=== PATIENT | male | born 1985 | race Caucasian/White ===

== ENCOUNTER 2021-07-26 23:43 | Inpatient (IN) | payer BC, SELFPAY ==
[2021-07-26 23:44] VITALS: BP 145/105; PULSE 106; RESP 18; TEMP 36.3; O2SAT 96; BMI 23.6
[2021-07-27] VITALS (10 sets, daily range): BP systolic 120–145; BP diastolic 76–94; PULSE 85–156; RESP 16–18; TEMP 36.6–37; O2SAT 95–99; BMI 22.4
[2021-07-27] MEDS: Phenobarbital 32.4 MG Tablet 97.2 MG PO (00:06)
[2021-07-27 00:31] LABS: Amphetamine Urine VISTA NEGATIVE (<1000 ng/mL); Barbiturate Urine VISTA NEGATIVE (< 200 ng/mL); Benzodiazepine Urine VISTA NEGATIVE (< 200 ng/mL); Cocaine Urine VISTA NEGATIVE (< 300 ng/mL); Ecstacy Urine VISTA NEGATIVE (< 500 ng/mL); Methadone Urine VISTA NEGATIVE (< 300 ng/mL); PCP Urine VISTA NEGATIVE (< 25 ng/mL); THC Urine VISTA NEGATIVE (< 50 ng/mL); Vista UDS pH Range 6
[2021-07-27 00:41] LABS: ALB/GLOB Ratio 0.9 RATIO (0.9-2.4); AST(SGOT) 27 U/L (15-37); Alanine Aminotransfer ALT/SGPT 29 U/L (16-61); Alkaline Phosphatase 101 U/L (45-117); Anion Gap 9 (5-15); BUN 10 mg/dL (7-18); BUN/Creat Ratio 9.2 RATIO (10-20); Calcium,Total 8.7 mg/dL (8.5-10.1); Chloride 101 mmol/L (98-107); Creatinine, Serum 1.09 mg/dL (0.70-1.30); EST Glomerular Filtration Rate 81 mL/min (>60); Est Glom Filt Rate - Afr Amer 98 mL/min (>60); Estimated Creatinine Clearance 89.77 ml/min; Globulin 4.6 g/dL (2.2-4.2); Glucose 113 mg/dL (74-106); Potassium 3.6 mmol/L (3.5-5.1); Protein, Total 8.6 g/dL (6.4-8.2); Sodium Level 138 mmol/L (136-145)
--- NOTE | 2021-07-27 00:43 | EX.ED.DYSGE1 ---
HPI History of Present Illness Chief Complaint: ETOH Intox Detail of Chief Complaint: Requesting detox from alcohol Informant: patient Onset/Context/Timing Onset: Weeks Context: Sudden Onset Timing: Continuous Quality: Patient presents because of alcohol dependency affecting job performance Location: Not applicable Current Severity: Severe Maximum Severity: Severe Worsened by: Patient began drinking proximately 2 weeks ago. Relieved by: Withdrawal symptoms relieved by alcohol ingestion Associated Symptoms Associated Symptoms: Palpitations, tremors not feeling well Narrative Narrative: Patient is a 36-year-old male who presents for alcohol detox. Last time he was in a detox program was 2013. He states he was sober since Father's Day. He began drinking this month. He is drinking 12-8 beers a day. Patient wakes up with shakes and tremors and palpitations. Patient denies fever, chills night sweats. He denies headache, visual, ocular auditory symptoms. He denies chest pain shortness of breath difficulty breathing. He denies vomiting or diarrhea. He denies black or maroon-colored stool. He denies hematuria. He denies bruising easily. He does vape. Prior similar symptoms: Yes Recent Illness/Hospitalization: No PFSH PFSH Medical History Alcohol abuse Home Medications NK 07/26/21 [History Last Taken Unknown] Allergy/AdvReac Type Severity Reaction Status Date / Time Penicillins AdvReac Rash Verified 07/26/21 23:47 Social History (Updated 07/27/21 @ 00:[address] Enmanuel Smith MD) household members: none Smoking Status: Former smoker Smokeless tobacco user: dissolvable tobacco alcohol intake: current Alcohol type: other details: 12-18 beers a day substance use type: does not use ROS ROS ED Constitutional Constitutional ED: Denies chills, fever(s), subjective, sweats or weight loss Eyes Eyes: Denies blurry vision, change in vision or diplopia ENT ENT ED: Denies ear pain, rhinorrhea or sore throat Cardiovascular Cardiovascular: Reports palpitations; Denies chest pain, orthopnea or racing heartbeat Respiratory/Chest Respiratory/Chest: Reports cough; Denies dyspnea, dyspnea on exertion, orthopnea or sputum Gastrointestinal Gastrointestinal: Denies abdominal pain, constipation, diarrhea, melena, nausea or vomiting Genitourinary Genitourinary ED: Denies dysuria, hematuria or urinary frequency Musculoskeletal Musculoskeletal: Denies arthralgias, back pain, myalgias or neck pain Integumentary Denies abscess, Abrasions or rash Neurologic Neurologic: Denies headache(s), paresthesias or weakness Psychiatric Psychiatric: Reports other Details: Alcoholism ; Denies anxiety or depression Endocrine Endocrinology: Denies polydipsia, polyphagia or polyuria Hematologic/Lymphatic Hematologic/Lymphatic: Denies anemia, easy bleeding or easy bruising Allergic/Immunologic Allergic/Immunologic ED: Denies mouth swelling, tongue swelling or urticaria EXAM Physical Exam Const Vital Signs: 07/26/21 23:44 07/27/21 00:08 Temperature 97.3 F L Temperature Source Temporal Pulse Rate 106 H 99 Respiratory Rate 18 18 Blood Pressure 145/105 H Blood Pressure Mean 118 Pulse Ox 96 99 Oxygen Delivery Method Room Air Room Air Positive well nourished and well developed General Appearance ED: well developed, NAD and other Alcohol odor to his health ; Negative for pallor HEENT Reports TM's clear and moist mucous membranes Negative for trauma or tenderness Tympanic Membrane ED: Yes TM's clear Eyes PERRL and EOMs intact bilaterally General Eye ED: Negative for pale conjunctiva or scleral icterus Neck no lymphadenopathy, supple and no JVD Resp normal respiratory effort and clear to auscultation bilaterally Effort and Inspection: Negative for pain with movement Cardio regular rhythm, S2 normal heart sound and no murmurs Rate: tachycardic GI normal to inspection, nondistended, normoactive bowel sounds, non-tender, non-distended and no masses Auscultation: normoactive bowel sounds Palpation: soft Back/Spine no CVA tenderness Cervical Spine: Negative for cervical spine tenderness Thoracic Spine / Upper Back: Negative for thoracic spinal tenderness or paraspinal muscle tenderness Neuro oriented x3, CN's II-XII intact bilaterally and no sensory deficits noted Neuro Narrative: Gait was normal. Sensorium / Orientation: alert Motor Exam: strength 5/5 throughout Psych mental status grossly normal Skin no rashes or lesions noted and no wounds General Skin Exam: Negative for jaundice or pallor MDM MDM MDM Narrative Medical decision making narrative: Screening blood work for admission for alcohol dependency was ordered. Will contact hospitalist for admission. Lab Data Attestation: I reviewed the patient's lab results. Labs: Laboratory Results - last 24 hr 07/26/21 07/27/21 07/27/21 23:58 00:05 00:05 Sodium 138 Potassium 3.6 Chloride 101 Carbon Dioxide 28.0 Anion Gap 9 BUN 10 Creatinine 1.09 Estim Creat Clear Calc 89.77 Est GFR (MDRD) Af Amer 98 Est GFR (MDRD) Non-Af 81 BUN/Creatinine Ratio 9.2 L Glucose 113 H Calcium 8.7 Total Bilirubin 0.60 AST 27 ALT 29 Alkaline Phosphatase 101 Total Protein 8.6 H Albumin 4.0 Globulin 4.6 H Albumin/Globulin Ratio 0.9 Urine Opiates Screen NEGATIVE Urine Methadone Screen NEGATIVE Ur Barbiturates Screen NEGATIVE Ur Phencyclidine Scrn NEGATIVE Ur Amphetamines Screen NEGATIVE U Methamphetamin-MDMA NEGATIVE U Benzodiazepines Scrn NEGATIVE Urine Cocaine Screen NEGATIVE U Cannabinoids Screen NEGATIVE Ur Drug Screen Comment Ethyl Alcohol 201.0 Discharge Plan Triage Chief Complaint: ETOH Intox ED Provider: Enmanuel Smith Dx/Rx/DC Orders Clinical Impression: Alcohol abuse with physiological dependence Prescriptions: No Action NK RF: 0 Primary Care Provider: Mekhi Greene NP Referrals: Mekhi Greene CERTIFIED DRIVER EXAMINER, CERTIFIED DRIVER EXAMINER-C [Primary Care Provider] - Disposition Disposition: Acute Care Hospital [facility]
--- NOTE | 2021-07-27 00:59 | HP.PCM.HOS_ITS ---
HPI - General General Date of Admission: 07/27/21 Date of Service: 07/27/21 Chief Complaint: Request for medical stabilization for alcohol withdrawal HPI Narrative JANES WADE, is a 36 M who presents with the above. Patient has history of alcohol abuse and drinks more than 18 cans of beer. He has been to detox before several years ago. He denied any history of alcohol withdrawal seizure. He last drank this morning. He stated that he is tired of living like this and not able to stop drinking. He requests for medical stabilization for acute alcohol withdrawal. He admits to some tremors. No other complaints of nausea or vomi ting. His vitals were stable in the ED. His CMP was unremarkable. Urine tox was negative except alcohol level was 201 PFSH Medical History Alcohol abuse Home Medications NK 07/26/21 [History Last Taken Unknown] Allergy/AdvReac Type Severity Reaction Status Date / Time Penicillins AdvReac Rash Verified 07/26/21 23:47 no significant family history no surgical history Social History household members: none Smoking Status: Former smoker Smokeless tobacco user: dissolvable tobacco alcohol intake: current Alcohol type: other details: 12-18 beers a day substance use type: does not use ROS ROS Narrative Constitutional: Denies: Anorexia, Chills, Fever, Night Sweats, Weight Change Eyes: Denies: Blurred vision, Cataracts, Conjunctivae Inflammation, Pain, Redness, Vision Change HEENT: Denies: Difficulty Hearing, Difficulty Swallowing, Head Aches, Hearing Changes, Sinus Congestion, Sinus Drainage Cardiovascular: Denies: Chest Pain, Orthopnea, Palpitations Respiratory: Denies: Cough, Shortness of breath at rest, Sputum production Gastrointestinal: Denies: Abdominal Pain, Nausea, Vomiting Genitourinary: Denies: Dysuria Musculoskeletal: Denies: Joint Pain, Joint stiffness, Joint swelling, Joint Tenderness Skin: Denies: Rash, Wounds Neurological: Denies: Numbness, Tingling, Focal weakness Vital Signs Vital Signs Vital Signs: 07/26/21 23:44 07/27/21 00:08 Temperature 97.3 F L Temperature Source Temporal Pulse Rate 106 H 99 Respiratory Rate 18 18 Blood Pressure 145/105 H Blood Pressure Mean 118 Pulse Ox 96 99 Oxygen Delivery Method Room Air Room Air Weight Weight: 70.307 kg Body Mass Index (BMI) 23.6 Physical Exam Narrative General: Alert, Oriented x3, Cooperative, No apparent distress HEENT: Atraumatic, PERRLA, EOMI, Normocephalic Oral: Moist Mucosa Neck: Supple Lungs: CTA Cardiovascular: Regular rate, Regular Rhythm, Normal S1, Normal S2, No murmurs Abdomen: Bowel Sounds Present, Soft, Non Tender, Non-Distended, No Hepato- splenomegaly Extremities: No edema Skin: No rashes Neurological: Cranial nerves II-XII grossly intact, Neuro grossly intact Psych/Mental Status: Normal Affect, Appropriate Results Lab / Micro Data Result Diagrams: 07/27/21 00:05 07/27/21 00:05 Labs: Laboratory Results - last 24 hr 07/26/21 23:58: Urine Opiates Screen NEGATIVE, Urine Methadone Screen NEGATIVE, Ur Barbiturates Screen NEGATIVE, Ur Phencyclidine Scrn NEGATIVE, Ur Amphetamines Screen NEGATIVE, U Methamphetamin-MDMA NEGATIVE, U Benzodiazepines Scrn NEGATIVE, Urine Cocaine Screen NEGATIVE, U Cannabinoids Screen NEGATIVE, Ur Drug Screen Comment 07/27/21 00:05: Sodium 138, Potassium 3.6, Chloride 101, Carbon Dioxide 28.0, Anion Gap 9, BUN 10, Creatinine 1.09, Estim Creat Clear Calc 89.77, Est GFR (MDRD) Af Amer 98, Est GFR (MDRD) Non-Af 81, BUN/Creatinine Ratio 9.2 L, Glucose 113 H, Calcium 8.7, Total Bilirubin 0.60, AST 27, ALT 29, Alkaline Phosphatase 101, Total Protein 8.6 H, Albumin 4.0, Globulin 4.6 H, Albumin/Globulin Ratio 0.9 07/27/21 00:05: Ethyl Alcohol 201.0 Assessment & Plan Assessment/Plan (1) Alcohol abuse with physiological dependence: PLAN: 1. Acute alcohol withdrawal, in a known alcoholic [facility]/alcohol withdrawal [facility] 2. DVT PPx- low risk, early ambulation recommended Charges/Coding Visit Charges Inpatient E&M: 53178 Init Hosp L2
[2021-07-27] MEDS: Gabapentin 300 MG Capsule PO (02:16)
[2021-07-27] MEDS: Mag Hydrox/Al Hydrox/Simeth 30 ML UDC PO ×2 (02:16→12:41)
[2021-07-27] MEDS: Ondansetron 8 MG Tablet PO (02:17)
[2021-07-27] MEDS: traZODone 100 MG Tablet PO ×2 (02:17→20:51)
[2021-07-27] MEDS: Dicyclomine 10 MG Capsule 20 MG PO ×2 (02:17→12:41)
[2021-07-27] MEDS: Phenobarbital 32.4 MG Tablet PO ×5 (03:59→20:51)
[2021-07-27] MEDS: Thiamine Hydrochloride 100 MG Tablet PO (07:55)
[2021-07-27] MEDS: hydrOXYzine PAM 25 MG Capsule 50 MG PO (07:55)
[2021-07-27] MEDS: Folic Acid 1 MG Tablet PO (07:55)
[2021-07-27] MEDS: Pantoprazole Sodium 40 MG Tablet PO (09:45)
--- NOTE | 2021-07-27 11:23 | PN.HOSP_ITS ---
Subjective Subjective some tremulousness. otherwise feels well. Objective Data Objective Data Vital Signs: Vital Signs Temp Pulse Resp BP Pulse Ox 36.8 C 106 H 16 143/81 H 95 07/27/21 07:49 07/27/21 07:49 07/27/21 07:49 07/27/21 07:49 07/27/21 07:49 Oxygen Delivery Method Room Air Weight: 67.1 kg Body Mass Index (BMI) 22.4 Lab / Micro Data Result Diagrams: 07/27/21 00:05 07/27/21 00:05 Labs: Laboratory Results - last 24 hr 07/26/21 23:58: Urine Opiates Screen NEGATIVE, Urine Methadone Screen NEGATIVE, Ur Barbiturates Screen NEGATIVE, Ur Phencyclidine Scrn NEGATIVE, Ur Amphetamines Screen NEGATIVE, U Methamphetamin-MDMA NEGATIVE, U Benzodiazepines Scrn NEGATIVE, Urine Cocaine Screen NEGATIVE, U Cannabinoids Screen NEGATIVE, Ur Drug Screen Comment 07/27/21 00:05: Sodium 138, Potassium 3.6, Chloride 101, Carbon Dioxide 28.0, Anion Gap 9, BUN 10, Creatinine 1.09, Estim Creat Clear Calc 89.77, Est GFR (MDRD) Af Amer 98, Est GFR (MDRD) Non-Af 81, BUN/Creatinine Ratio 9.2 L, Glucose 113 H, Calcium 8.7, Total Bilirubin 0.60, AST 27, ALT 29, Alkaline Phosphatase 101, Total Protein 8.6 H, Albumin 4.0, Globulin 4.6 H, Albumin/Globulin Ratio 0.9 07/27/21 00:05: Ethyl Alcohol 201.0 Physical Exam Const alert and no apparent distress Resp normal respiratory effort, no retractions, no use of accessory muscles and clear to auscultation bilaterally Cardio regular rate, regular rhythm, S1 normal heart sound and S2 normal heart sound GI normal to inspection, nondistended, normoactive bowel sounds, soft to palpation, non-tender and non-distended Extremity normal to inspection Neuro Sensorium / Orientation: awake and alert Assessment & Plan Assessment/Plan (1) Alcohol abuse with physiological dependence: PLAN: 1. Acute alcohol withdrawal, in a known alcoholic Admit to [facility], start on phenobarb/alcohol withdrawal protocol 2. DVT PPx- low risk, early ambulation recommended Charges/Coding Procedures Hospitalists Procedures: Other Procedure - See Report (non billable rounding as pt admitted after midnight. )
[2021-07-27] MEDS: 0.9% Normal Saline 1,000 ML 150 ML IV (13:13)
[2021-07-27] MEDS: 0.9% Saline Lock 10 ML Syringe IV (20:51)
[2021-07-27] MEDS: Loperamide 2 MG Capsule PO (20:51)
[2021-07-28] VITALS (7 sets, daily range): BP systolic 120–133; BP diastolic 68–85; PULSE 74–96; RESP 16–18; TEMP 36.3–37.2; O2SAT 95–99
[2021-07-28] MEDS: Phenobarbital 32.4 MG Tablet PO ×6 (00:48→20:29)
[2021-07-28] MEDS: Thiamine Hydrochloride 100 MG Tablet PO (07:53)
[2021-07-28] MEDS: Folic Acid 1 MG Tablet PO (07:53)
[2021-07-28] MEDS: Pantoprazole Sodium 40 MG Tablet PO (10:32)
--- NOTE | 2021-07-28 10:53 | ADDICTION ---
This engineering technical writer met with PT to conduct ASAM, MSE, AUDIT, assessments and to plan for d/c. PT A+Ox4 and participated actively. All assessments completed, and placed in PT's chart. PT plans to f/u at [facility] for follow-up treatment and counseling services. PT did not indicate a need for transportation post d/c from [facility].
--- NOTE | 2021-07-28 11:47 | PN.HOSP_ITS ---
Subjective Subjective Patient seen and examined. He had no complaints and feels well. Review of systems otherwise negative. Objective Data Objective Data Vital Signs: Vital Signs Temp Pulse Resp BP Pulse Ox 97.3 F L 74 16 129/82 H 98 07/28/21 08:00 07/28/21 08:00 07/28/21 08:00 07/28/21 08:00 07/28/21 08:00 Oxygen Delivery Method Room Air Weight: 147 lb 14.883 oz Body Mass Index (BMI) 22.4 Intake & Output: Intake and Output for Last 24 Hours 07/26/21 07/27/21 07/28/21 23:59 23:59 23:59 Intake Total 1900 / 1900 480 / 480 Balance 1900 / 1900 480 / 480 Lab / Micro Data Result Diagrams: 07/27/21 00:05 07/27/21 00:05 Physical Exam Const alert, oriented x3 and no apparent distress Exam Limitations: no limitations HEENT head/scalp atraumatic and moist oral mucous membranes Head and Scalp: normocephalic Eyes PERRL, EOMs intact bilaterally and conjunctivae normal Neck no lymphadenopathy Resp normal respiratory effort, no retractions, no use of accessory muscles and clear to auscultation bilaterally Cardio regular rate, regular rhythm, S1 normal heart sound, S2 normal heart sound and no murmurs GI normal to inspection, nondistended, normoactive bowel sounds, soft to palpation, non-tender and non-distended Extremity normal to inspection, full ROM and no clubbing, cyanosis or edema Peripheral Pulses: Yes pulses 2+ throughout Skin no rashes or lesions noted Neuro oriented x3, CN's II-XII intact bilaterally and moves all extremities Sensorium / Orientation: awake and alert Psych affect normal Assessment & Plan Assessment/Plan (1) Alcohol abuse with physiological dependence: PLAN: #Acute alcohol withdrawal * On alcohol withdrawal protocol with phenobarbital * On thiamine, folic acid and Multivite. * Adjunctive meds for symptomatic relief * DVT prophylaxis: low risk. encourage ambulation. Charges/Coding Visit Charges Inpatient E&M: 49321 Subs Hosp L2
--- NOTE | 2021-07-28 14:33 | CHAPLAIN ---
Type of Pastoral Visit _x__ Initial Visit ___ Follow-up Visit ___ On-call Visit ___ General Patient Visit ___ Spiritual Assessment ___ Family Conference ___ Bereavement ___ Rapid Response ___ Code Blue ___ Other (describe below) Pastoral Care Referral From _x__ Patient ___ Family ___ Nurse ___ Physician ___ Conveyor Console Operator ___ Senior Graphic Designer ___ Other (describe below) Sacrament/Intervention _x__ Active listening ___ Anointing ___ Adventist ___ Bereavement ___ Communion _x__ Blanca exploration ___ _x__ Life review _x__ Prayer ___ Reconciliation ___ Sacrament of Sick _x__ Supportive presence ___ Wedding ___ Other (describe below) Pastoral Comments patient is respectful and agreeable to presence of this can slider; pt does admit to being groggy due to the meds but continues anyway and give history of self, relationships, and weaknesses; pt answers questions appropriately but when he is asked about his blanca, the pt immediately became tearful and acknowledging that once he quit seeking the Higher Power in his life things in his life got more difficult; patient acknowledges when his needs are for recovery and yet admits that his support level is low; pt has very few family members close by; pt has 'toxic' relationship that he needs to end; pt welcomes presence, prayer, and more visits while he is a patient here
[2021-07-28] MEDS: traZODone 100 MG Tablet PO (20:34)
[2021-07-29 00:58] VITALS: BP 113/65; PULSE 72; RESP 16; TEMP 36.6; O2SAT 96
[2021-07-29] MEDS: Phenobarbital 32.4 MG Tablet PO ×5 (01:00→19:50)
[2021-07-29 04:17] VITALS: BP 128/67; PULSE 69; RESP 16; TEMP 36.6; O2SAT 99
[2021-07-29 08:00] VITALS: BP 142/93; PULSE 100; RESP 16; TEMP 36.8; O2SAT 96
[2021-07-29] MEDS: Thiamine Hydrochloride 100 MG Tablet PO (08:26)
[2021-07-29] MEDS: Folic Acid 1 MG Tablet PO (08:26)
[2021-07-29] MEDS: Pantoprazole Sodium 40 MG Tablet PO (10:02)
[2021-07-29 10:19] VITALS: BP 144/93; PULSE 98; RESP 16; TEMP 36.8; O2SAT 99
--- NOTE | 2021-07-29 10:34 | PN.HOSP_ITS ---
Subjective Subjective Patient seen and examined. He has no active complaints and had an uneventful night. Review of systems is otherwise negative. Objective Data Objective Data Vital Signs: Vital Signs Temp Pulse Resp BP Pulse Ox 98.2 F 98 16 144/93 H 99 07/29/21 10:19 07/29/21 10:19 07/29/21 10:19 07/29/21 10:19 07/29/21 10:19 Oxygen Delivery Method Room Air Weight: 147 lb 14.883 oz Body Mass Index (BMI) 22.4 Intake & Output: Intake and Output for Last 24 Hours 07/27/21 07/28/21 07/29/21 23:59 23:59 23:59 Intake Total 1900 / 1900 880 / 880 Balance 1900 / 1900 880 / 880 Lab / Micro Data Result Diagrams: 07/27/21 00:05 07/27/21 00:05 Physical Exam Const alert, oriented x3 and no apparent distress Exam Limitations: no limitations HEENT head/scalp atraumatic and moist oral mucous membranes Head and Scalp: normocephalic Eyes PERRL, EOMs intact bilaterally and conjunctivae normal Neck no lymphadenopathy Resp normal respiratory effort, no retractions, no use of accessory muscles and clear to auscultation bilaterally Cardio regular rate, regular rhythm, S1 normal heart sound, S2 normal heart sound and no murmurs GI normal to inspection, nondistended, normoactive bowel sounds, soft to palpation, non-tender and non-distended Extremity normal to inspection, full ROM and no clubbing, cyanosis or edema Peripheral Pulses: Yes pulses 2+ throughout Skin no rashes or lesions noted Neuro oriented x3, CN's II-XII intact bilaterally and moves all extremities Sensorium / Orientation: awake and alert Psych affect normal Assessment & Plan Assessment/Plan (1) Alcohol abuse with physiological dependence: PLAN: #Acute alcohol withdrawal * On alcohol withdrawal protocol with phenobarbital * On thiamine, folic acid and Multivite. * Adjunctive meds for symptomatic relief * DVT prophylaxis: low risk. encourage ambulation. Disposition: for DC home tomorrow Charges/Coding Visit Charges Inpatient E&M: 19944 Subs Hosp L2
[2021-07-29 14:33] VITALS: BP 126/82; PULSE 79; RESP 16; TEMP 37; O2SAT 98
--- NOTE | 2021-07-29 15:32 | CHAPLAIN ---
Type of Pastoral Visit ___ Initial Visit _x__ Follow-up Visit ___ On-call Visit ___ General Patient Visit ___ Spiritual Assessment ___ Family Conference ___ Bereavement ___ Rapid Response ___ Code Blue ___ Other (describe below) Pastoral Care Referral From _x__ Patient ___ Family ___ Nurse ___ Physician ___ Financial Agent ___ Expanding Machine Operator ___ Other (describe below) Sacrament/Intervention _x__ Active listening ___ Anointing ___ Scientologist ___ Bereavement ___ Communion _x__ Blanca exploration ___ _x__ Life review _x__ Prayer ___ Reconciliation ___ Sacrament of Sick _x__ Supportive presence ___ Wedding ___ Other (describe below) Pastoral Comments patient welcomes this slot floor attendant back for a visit today; pt begins to talk openly about his life and thoughts; pt is mentally processing his choices and his future life with evaluation of priorities in work, relationships, and living style; pt continues to lead the conversation in various areas; pt also talks about his follow up plan for group meetings, establishing more blanca into his life, and connecting with family; pt is tearful at many times during the conversation; pt expresses thankfulness for someone listening to me and taking time and also for the whole staff who have been amazing; pt welcomes prayer support; pt would welcome follow up tomorrow before discharge if it is possible with timing
[2021-07-29 19:47] VITALS: BP 130/83; PULSE 73; RESP 16; TEMP 36.5; O2SAT 100
[2021-07-29] MEDS: 0.9% Saline Lock 10 ML Syringe IV (19:50)
[2021-07-29] MEDS: Dicyclomine 10 MG Capsule 20 MG PO (21:14)
[2021-07-29] MEDS: traZODone 100 MG Tablet PO (21:14)
[2021-07-30 02:54] VITALS: BP 124/78; PULSE 77; RESP 16; TEMP 36.5; O2SAT 98
[2021-07-30] MEDS: Phenobarbital 32.4 MG Tablet PO ×2 (02:55→08:15)
[2021-07-30 08:14] VITALS: BP 117/77; PULSE 73; RESP 16; TEMP 36.5; O2SAT 99
[2021-07-30] MEDS: Pantoprazole Sodium 40 MG Tablet PO (08:15)
[2021-07-30] MEDS: Folic Acid 1 MG Tablet PO (08:15)
[2021-07-30] MEDS: Thiamine Hydrochloride 100 MG Tablet PO (08:15)
--- NOTE | 2021-07-30 10:04 | ADDICTION ---
TW met with pt to check in and identify any needs he had before d/c. Pt inquired about temperature and informed TW he was planning on walking but now that it is 30 degrees, was unsure what he was going to do. TW called Olvin Simpson, peer coach operator to arrange transportation. TW spoke to nurse Cande, who was unsure exactly what time d/c would be. TW provided Olvin's phone number to nurse, so he can be contacted for transportation upon d/c.
--- NOTE | 2021-07-30 10:07 | DS.PCM_ITS ---
Providers Date of Admission: 07/27/21 Primary Care Physician: ROSARIO Wesley Reason For Visit: ACUTE ALCOHOL WITHDRAWAL Diagnosis Discharge Diagnosis (1) Alcohol abuse with physiological dependence: Status: Acute Code(s): F10.20 - Alcohol dependence, uncomplicated Medications at Discharge Home Medications NK 07/26/21 Hospital Course Operations None Procedures None Summary of Care Provided Minutes Spent on Discharge: 37 Hospital Course: Patient is a 69-year-old male with a past medical history of alcohol dependence was admitted through the ED on 07/27/2021 for acute alcohol withdrawal. Patient drank more than 18 cans of beer a day and his last drink was on the morning of admission. He admitted to [facility] on admission. Labs were unremarkable and urine tox was negative except serum alcohol level of 201. He was admitted and managed for acute alcohol withdrawal and started on alcohol withdrawal protocol with phenobarbital. Patient tolerated 3-day detox process and did well. He remained stable and was discharged home on 07/30/2021 and wishes to follow-up with [facility] on outpatient basis. Patient seen and examined prior to discharge. He had no active complaints and felt well. Review of systems otherwise negative. Labs and vitals reviewed. Home medication reviewed and reconciled. Physical Exam Const alert, oriented x3 and no apparent distress General Appearance: cooperative and comfortable Exam Limitations: no limitations HEENT normocephalic, head/scalp atraumatic, hearing grossly normal bilaterally and moist oral mucous membranes Eyes PERRL, EOMs intact bilaterally and conjunctivae normal Neck no lymphadenopathy Resp normal respiratory effort, no retractions, no use of accessory muscles and clear to auscultation bilaterally Cardio regular rate, regular rhythm, S1 normal heart sound, S2 normal heart sound and no murmurs GI normal to inspection, nondistended, normoactive bowel sounds, soft to palpation, non-tender and non-distended Extremity normal to inspection, full ROM and no clubbing, cyanosis or edema Skin no rashes or lesions noted Neuro oriented x3, CN's II-XII intact bilaterally and moves all extremities Sensorium / Orientation: awake and alert Psych affect normal Weight / BMI Weight Weight: 147 lb 14.883 oz Body Mass Index (BMI) 22.4 ABG / Lab / Microbiology Data Result Diagrams: 07/27/21 00:05 07/27/21 00:05 D/C Instructions Discharge Diet: No restrictions Discharge Activity: Return to Normal Activity Weight Bearing Status: Weight bearing as tolerated Call your doctor if you observe: Fever of 101 or Higher, Shortness of breath, Swelling in the ankles and Chest pain Meaningful Use Info Meaningful Use Diagnoses (Choose all that apply): None applicable Discharge Plan Admission Admit Date/Time: 07/27/21 00:56 Primary Reason for Your Visit: alcohol withdrawal Attending Provider: Yissel Villeda Primary Care Provider: Mekhi Greene NP Instructions Patient Instructions: Alcohol Withdrawal: What to Expect, ED Withdrawal Alcohol Discharge Orders/Prescriptions Prescriptions: No Action NK RF: 0 Referrals / Follow Up: Mekhi Greene NP, SAND SCREENER OPERATOR-C [Primary Care Provider] - Within 2 Weeks Disposition Disposition (needs filled in before D/C Order can be placed): Home, Self Care Charges/Coding Visit Charges Inpatient E&M: 88911 Disch Hosp
[2021-07-30 10:36] VITALS: BP 135/86; PULSE 93; RESP 16; TEMP 36.5; O2SAT 100
== END 2021-07-30 11:06 | disposition home or self-care (01) | DRG 897 ==
LOC: ED 07-27 01:05 → MS3 07-27 01:59
PROVIDERS: Admitting Provider Internal Medicine; Emergency Provider Emergency Medicine; PCP Nurse Practitioner Primary Care; Referring Provider Internal Medicine; Visit Provider Student in an Organized Health Care Education/Training Program
DX: F10.230 Alcohol dependence with withdrawal, uncomplicated (principal); Z87.891 Personal history of nicotine dependence; Y90.9 Presence of alcohol in blood, level not specified
CPT/HCPCS: 80053; 80307; 82077; 97802; J7030; A4216

== ENCOUNTER 2021-10-08 20:40 | Inpatient (IN) | payer BC, SELFPAY ==
[2021-10-08 20:41] VITALS: BP 125/103; PULSE 91; RESP 18; TEMP 36.8; O2SAT 95; BMI 25.7
--- NOTE | 2021-10-08 20:53 | EKG12_ITS ---
Test Reason : ETOH INTOX Blood Pressure : / mmHG Vent. Rate : 081 BPM Atrial Rate : 081 BPM P-R Int : 128 ms QRS Dur : 102 ms QT Int : 382 ms P-R-T Axes : 073 065 043 degrees QTc Int : 443 ms Normal sinus rhythm Normal ECG Confirmed by YADY WOODS, JAMESON ([id number]), editor dictionary ANUPAMA VARGAS ([id number]) on 10/10/2021 9:41:25 AM Referred By: BURT Confirmed By:LAKESHA CONTEH MD
--- NOTE | 2021-10-08 20:54 | EX.ED.SAOD ---
HPI History of Present Illness Chief Complaint: ETOH Intox Informant: patient Onset/Context/Timing Onset: Days (5) Timing: Continuous Current Severity: Moderate Maximum Severity: Moderate Narrative Narrative: Patient here requesting detox from alcohol. He was here admitted for detox about 2 months ago, he states he was sober for 2 months and basically started drinking again 5 days ago and has not stopped. His drink of choice is truly. He does not drink anything else and he uses no other substances. When asked if he is feeling withdrawal symptoms in the morning, he states he has not given it a chance because he has been drinking continuously. He denies any physical symptoms except for chronically recurring palpitations that feel like a brief pause and a hard strong beat that is prompted by exertion but he never gets this at rest. No associated near syncope or syncope or dyspnea and this is not new. He states he has been going to counseling at [facility], however he has not talked to them in the last 2 weeks or so and has not attempted since he started drinking in the last 5 days. He denies any other physical symptoms or recent illness or injury. [facility] Medical History Alcohol abuse Alcohol abuse with physiological dependence Home Medications NK 07/26/21 [History Last Taken Unknown] Allergy/AdvReac Type Severity Reaction Status Date / Time Penicillins AdvReac Rash Verified 10/08/21 20:41 Social History household members: none Smoking Status: Former smoker Smokeless tobacco user: dissolvable tobacco alcohol intake: current Alcohol type: other details: 12-18 beers a day substance use type: does not use ROS ROS ED Constitutional Constitutional ED: Denies chills or fever(s) Eyes Eyes: Denies change in vision or diplopia ENT ENT ED: Denies rhinorrhea or sore throat Cardiovascular Cardiovascular: Reports palpitations; Denies chest pain Respiratory/Chest Respiratory/Chest: Denies cough or dyspnea Gastrointestinal Gastrointestinal: Denies abdominal pain, diarrhea, nausea or vomiting Genitourinary Genitourinary ED: Denies dysuria or hematuria Musculoskeletal Musculoskeletal: Denies back pain or neck pain Integumentary Denies abscess or rash Neurologic Neurologic: Denies headache(s), paresthesias or weakness Psychiatric Psychiatric: Denies anxiety or suicidal thoughts EXAM Physical Exam Const Vital Signs: 10/08/21 20:41 Temperature 98.2 F Temperature Source Temporal Pulse Rate 91 Respiratory Rate 18 Blood Pressure 125/103 H Blood Pressure Mean 110 Pulse Ox 95 Oxygen Delivery Method Room Air Positive well nourished and well developed General Appearance ED: well developed and NAD HEENT Reports moist mucous membranes normocephalic and atraumatic Eyes PERRL and EOMs intact bilaterally Neck full ROM and supple Resp normal respiratory effort and clear to auscultation bilaterally Cardio regular rate, regular rhythm and no murmurs GI non-tender and non-distended Auscultation: normoactive bowel sounds Palpation: soft Back/Spine no CVA tenderness General Back: other FROM Extremity normal to inspection General Extremety ED: Negative for edema, pulses abnormal or tenderness General Extremity: Negative for edema or pulses abnormal Neuro oriented x3, CN's II-XII intact bilaterally and no sensory deficits noted Sensorium / Orientation: awake and alert Motor Exam: strength 5/5 throughout Psych mental status grossly normal, thought process normal, cooperative, affect normal and speech normal Psych Narrative: Intoxicated and cooperative, pleasant. Skin no rashes or lesions noted and no wounds MDM MDM MDM Narrative Medical decision making narrative: Labs and toxicology obtained, discussed with hospitalist will admit to try again for detox. Lab Data Attestation: I reviewed the patient's lab results. Rhythm Strip Rhythm Strip: Sinus Rhythm Rate: 80 Ectopy: None EKG Initial EKG: Attestation: I personally reviewed and interpreted this EKG as follows: Interpretation: Sinus Rhythm and No Acute Injury Pattern Discharge Plan Dx/Rx/DC Orders Clinical Impression: Alcohol dependence Disposition Disposition: Acute Care Hospital [facility]
--- NOTE | 2021-10-08 21:20 | HP.PCM.HOS_ITS ---
HPI - General General Date of Admission: 10/08/21 Date of Service: 10/08/21 Chief Complaint: EtOH detox request, EtOH abuse history HPI Narrative The patient is a 36 y/o M w/ PMHx: Tobacco use->Vaping, EtOH abuse (routine intake wine, beer, vodka heavily daily, sober x 2 months, started drinking again the Wednesday prior to presentation, last drink prior to ED presentation) who presents to the [facility] on 10/08/21 w/ unfortunate recent relapse with alcohol intake with significant amount again over the last 5 days eager again to be sober noting that he had started again secondary to unfortunately over the weekend wanting that sensation of having fun as a specific trigger. He has been following with counseling however he has not been over these last several days. Discussed at length necessity to retrain his brain that the first thing that should happen when he thinks about drinking again should be a call to his sponsor or [facility]. Patient is currently not in withdrawal as intake of alcohol just prior to ED presentation. He notes that he drank all the alcohol in his house. Work-up in the ED included T98.2, heart rate 91, BP 125/103, respiratory rate 18, 95% on room air, pending CBC, CMP, UDS, ethyl alcohol levels upon requested evaluation of patient. [facility] Medical History Alcohol abuse with physiological dependence Tobacco use Vapes nicotine containing substance Home Medications NK 07/26/21 [History Last Taken Unknown] Allergy/AdvReac Type Severity Reaction Status Date / Time Penicillins AdvReac Rash Verified 10/08/21 20:41 other (Denies any marked maternal or paternal family history including HD, DM, CA.) Surgical History (Updated 10/08/21 @ 21:[address] Tracie Jones MD) History of hand surgery Social History (Updated 10/08/21 @ 21:[address] Tracie Jones MD) household members: none Smoking Status: Former smoker Smokeless tobacco user: dissolvable tobacco how long ago did patient quit smoking: Smoked 1 ppd [id number], transitioned to vap 1 car/week alcohol intake: current alcohol intake frequency: 3 or more drinks per day Alcohol type: other details: Heavy intake beer, wine, hard liquor. substance use type: does not use ROS ROS Narrative Admission Review of Systems: CONSTITUTIONAL: No weight loss, fever, chills, weakness, + fatigue. HEENT: Eyes: No visual loss, blurred vision, double vision or yellow sclerae. Ears, Nose, Throat: No hearing loss, sneezing, congestion, runny nose or sore throat. SKIN: No rash or itching, lesions, wounds. CARDIOVASCULAR: No chest pain, chest pressure or chest discomfort, palpitations, edema, orthopnea, syncopal events. RESPIRATORY: No shortness of breath, cough or sputum, wheezing, hemoptysis. GASTROINTESTINAL: No anorexia, nausea, vomiting or diarrhea, abdominal pain, melena, BRBPR. GENITOURINARY: No dysuria, frequency, urgency or retention. NEUROLOGICAL: No headache, dizziness, syncope, paralysis, ataxia, numbness or tingling in the extremities, focal weakness, change in bowel or bladder control, seizure. MUSCULOSKELETAL: No muscle, back pain, joint pain or stiffness. HEMATOLOGIC: No anemia, bleeding or bruising. LYMPHATICS: No enlarged nodes. No history of splenectomy. PSYCHIATRIC: + Suspect underlying depression or anxiety. ENDOCRINOLOGIC: No reports of sweating, cold or heat intolerance. No polyuria or polydipsia. ALLERGIES: No history of asthma, hives, eczema or rhinitis. Vital Signs Vital Signs Vital Signs: 10/08/21 20:41 Temperature 98.2 F Temperature Source Temporal Pulse Rate 91 Respiratory Rate 18 Blood Pressure 125/103 H Blood Pressure Mean 110 Pulse Ox 95 Oxygen Delivery Method Room Air Weight Weight: 168 lb 13.985 oz Body Mass Index (BMI) 25.7 Physical Exam Narrative Physical Examination: General: Awake, alert, oriented x 3 and cooperative, seated upright in the ED bed, fatigued appearing, no obvious withdrawal symptoms with recent alcohol intake prior to ED presentation. Skin: Normal color, normal turgor, no icterus, no cyanosis. HEENT: AT/NC, EOMI, PERRLA, MMM, no carotid bruits or JVD noted. Lungs: CTA bilaterally, moderate effort, mild decrease BL bases, no rales, ronchi or wheezing. Heart: Currently regular rate and rhythm; no gallop, rub audible. Abdomen: Soft, NTTP, ND, normal BS, no HSM. Extremities: No cyanosis, clubbing, or edema. Neurological: Patient awake, alert, oriented as noted, cognitive function intact; pupils equally reactive to light and accommodation, cranial nerves II- XII grossly normal, moving all 4 extremities, no focal deficits, strength preserved, no tremors or agitation evident. Psychiatric: Affect appears flat, fatigued appearing, do suspect underlying at least depression, no acute evidence of anxiety feelings. Results Rhythm Strip Rhythm Strip: Sinus Rhythm Rate: 80 Ectopy: None Assessment & Plan Assessment/Plan (1) Alcohol dependence: QUALIFIERS: Substance use status: uncomplicated Qualified Code(s): F10.20 - Alcohol dependence, uncomplicated PLAN: The patient is a 36 y/o M w/ PMHx: Tobacco use->Vaping, EtOH abuse (routine intake wine, beer, vodka heavily daily, sober x 2 months, started drink ing again the Wednesday prior to presentation, last drink prior to ED presentation) who presents to the [facility] on 10/08/21 w/ unfortunate recent relapse with alcohol intake with significant amount again over the last 5 days eager again to be sober. #1. Acute EtOH Withdrawal: Will admit to OR, routine labs obtained in the ED upon presentation and pending upon evaluation of patient. Given interest in sob riety, will initiate and continue on protocol with taper course of Phenobarbital, scheduled gabapentin for seizure prophylaxis, as needed Catapres, Bentyl, Vistaril, IV fluids, IV antiemetics, Tylenol as needed for pain. Will consult Case management for assistance for transition to next level of rehabilitation care. Mag, phos pending. Maintain on CIWA protocol concurrently. #2. Tobacco vaping abuse: Patient previously smoked cigarette tobacco from [id number] at 1 pack/day quitting and transition to vaping at that time noting he uses approximately 1 cartridge per week, encouraged cessation, inpatient consultation per RT, NR if desired. #3. DVT prophylaxis: Low risk, encourage ambulation Charges/Coding Visit Charges Inpatient E&M: 88421 Init Hosp L2
[2021-10-08 21:29] LABS: Absolute Lymphocyte Count 2.15 X10^3/uL (0.83-4.51); Absolute Neutrophil Count 5.4 X10^3/uL (2.0-7.7); Basophil% 1.2 % (0-1); Eosinophil# 0.09 X10^3/uL; Hematocrit 50.3 % (40-54); Lymphocyte # 2.15 X10^3/ul (0.83-4.51); Lymphocyte % 24.8 % (19-41); Mean Corp Hgb Conc 35.8 g/dL (32-36); Mean Corpuscular Hgb 30.9 pg (27.0-32.0); Mean Corpuscular Volume 86.3 fL (80-94); Mean Platelet Vol. 8.8 fl (6.2-12.0); Monocyte# 0.89 X10^3/uL; Monocyte% 10.3 % (0-10); NRBC Flagged by Analyzer 0 % (0-5); Neutrophil # 5.42 X10^3/uL (2.7-7.7); Neutrophil % 62.5 % (47-70); Platelet Count 260 K/mm3 (150-450); RBC Distribution Width SD 37.9 fl (35.1-43.9); Red Blood Count 5.83 M/mm3 (4.6-6.2); White Blood Count 8.7 K/mm3 (4.4-11.0)
[2021-10-08 21:39] LABS: Phosphorus 3.3 mg/dL (2.5-4.9)
[2021-10-08 21:41] LABS: AST(SGOT) 27 U/L (15-37); Alanine Aminotransfer ALT/SGPT 46 U/L (16-61); Albumin, Serum 4.4 g/dL (3.2-5.0); Alkaline Phosphatase 116 U/L (45-117); Anion Gap 8 (5-15); BUN 6 mg/dL (7-18); BUN/Creat Ratio 4.7 RATIO (10-20); Calcium,Total 9.5 mg/dL (8.5-10.1); Chloride 97 mmol/L (98-107); Creatinine, Serum 1.29 mg/dL (0.70-1.30); EST Glomerular Filtration Rate 66 mL/min (>60); Est Glom Filt Rate - Afr Amer 80 mL/min (>60); Estimated Creatinine Clearance 75.85 ml/min; Globulin 4.4 g/dL (2.2-4.2); Glucose 115 mg/dL (74-106); Magnesium 2.3 mg/dL (1.6-2.6); Potassium 3.3 mmol/L (3.5-5.1); Protein, Total 8.8 g/dL (6.4-8.2); Sodium Level 138 mmol/L (136-145)
[2021-10-08 21:44] VITALS: BP 125/101; PULSE 91; RESP 95; TEMP 36.7
[2021-10-08 21:44] LABS: Amphetamine Urine VISTA NEGATIVE (<1000 ng/mL); Barbiturate Urine VISTA NEGATIVE (< 200 ng/mL); Benzodiazepine Urine VISTA NEGATIVE (< 200 ng/mL); Cocaine Urine VISTA NEGATIVE (< 300 ng/mL); Ecstacy Urine VISTA NEGATIVE (< 500 ng/mL); Methadone Urine VISTA NEGATIVE (< 300 ng/mL); PCP Urine VISTA NEGATIVE (< 25 ng/mL); THC Urine VISTA NEGATIVE (< 50 ng/mL); Vista UDS pH Range 7
[2021-10-08 21:45] VITALS: BMI 24.5
[2021-10-08 22:02] VITALS: BP 130/84; PULSE 81; RESP 18; TEMP 37.1; O2SAT 97
[2021-10-08] MEDS: Phenobarbital 32.4 MG Tablet 97.2 MG PO (22:12)
[2021-10-08] MEDS: Lactated Ringers 1,000 ML 125 ML IV (22:12)
[2021-10-08] MEDS: Mag Hydrox/Al Hydrox/Simeth 30 ML UDC PO (22:12)
[2021-10-08] MEDS: Potassium Chloride Oral Tablet 20 MEQ 40 MEQ PO (22:37)
[2021-10-09] MEDS: traZODone 100 MG Tablet PO (00:02)
[2021-10-09 02:01] VITALS: BP 126/72; PULSE 93; RESP 16; TEMP 37.1; O2SAT 93
[2021-10-09] MEDS: Phenobarbital 32.4 MG Tablet 97.2 MG PO ×3 (02:29→09:35)
[2021-10-09 06:22] VITALS: BP 128/79; PULSE 91; RESP 16; TEMP 37.3; O2SAT 94
[2021-10-09] MEDS: hydrOXYzine PAM 25 MG Capsule 50 MG PO (06:29)
[2021-10-09 07:52] VITALS: O2SAT 93
--- NOTE | 2021-10-09 07:52 | PN.HOSP_ITS ---
Subjective Subjective Patient is a 36-year-old gentleman with history of chronic alcohol dependence presented with acute alcohol withdrawal Objective Data Objective Data Vital Signs: Vital Signs Temp Pulse Resp BP Pulse Ox 99.2 F H 91 16 128/79 H 93 10/09/21 06:22 10/09/21 06:22 10/09/21 06:22 10/09/21 06:22 10/09/21 07:52 Oxygen Delivery Method Room Air Weight: 73.4 kg Body Mass Index (BMI) 24.5 Intake & Output: Intake and Output for Last 24 Hours 10/07/21 10/08/21 10/09/21 23:59 23:59 23:59 Intake Total 1000 / 1000 Balance 1000 / 1000 Lab / Micro Data Result Diagrams: 10/09/21 08:33 10/09/21 08:33 Labs: Laboratory Results - last 24 hr 10/08/21 21:10: WBC 8.7, RBC 5.83, Hgb 18.0 H*, Hct 50.3, MCV 86.3, MCH 30.9, MCHC 35.8, RDW Std Deviation 37.9, RDW Coeff of Junior 12.0, Plt Count 260, MPV 8.8, Immature Gran % (Auto) 0.200, Neut % (Auto) 62.5, Lymph % (Auto) 24.8, [place] % (Auto) 10.3 H, Eos % (Auto) 1.0, Baso % (Auto) 1.2 H, Absolute Neuts (auto) 5.4, Absolute Lymphs (auto) 2.15, Nucleated RBC % 0 10/08/21 21:10: Sodium 138, Potassium 3.3 L, Chloride 97 L, Carbon Dioxide 33.0 H, Anion Gap 8, BUN 6 L, Creatinine 1.29, Estim Creat Clear Calc 75.85, Est GFR (MDRD) Af Amer 80, Est GFR (MDRD) Non-Af 66, BUN/Creatinine Ratio 4.7 L, Glucose 115 H, Calcium 9.5, Magnesium 2.3, Total Bilirubin 0.60, AST 27, ALT 46, Alkaline Phosphatase 116, Total Protein 8.8 H, Albumin 4.4, Globulin 4.4 H, Albumin/Globulin Ratio 1.0 10/08/21 21:10: Ethyl Alcohol 255.0 10/08/21 21:10: Urine Opiates Screen NEGATIVE, Urine Methadone Screen NEGATIVE, Ur Barbiturates Screen NEGATIVE, Ur Phencyclidine Scrn NEGATIVE, Ur Amphetamines Screen NEGATIVE, MDMA (Ecstasy) Screen NEGATIVE, U Benzodiazepines Scrn NEGATIVE, Urine Cocaine Screen NEGATIVE, U Cannabinoids Screen NEGATIVE, Ur Drug Screen Comment 10/08/21 21:10: Phosphorus 3.3 Rhythm Strip Rhythm Strip: Sinus Rhythm Rate: 80 Ectopy: None Physical Exam Narrative GENERAL: cooperative HEENT: Atraumatic; EYES; Anicteric, Normal Conjunctiva NECK; supple, normal thyroid, RESPIRATORY: Diminished to auscultation CARDIOVASCULAR: Regular S1 S2, GI: soft, normoactive bowel sounds, : No Renal angle tenderness; EXTREMITIES: No edema, no clubbing, MUSCULOSKELETAL: no muscle wasting NEURO: Awake; no lateralizing signs. SKIN: No Rash PSYCH; Flat affect Assessment & Plan Assessment/Plan (1) Alcohol dependence: QUALIFIERS: Substance use status: uncomplicated Qualified Code(s): F10.20 - Alcohol dependence, uncomplicated PLAN: Patient is a 36-year-old gentleman with history of chronic alcohol dependence presented with acute alcohol withdrawal 1. Acute alcohol withdrawal ? Patient has been admitted to regular nursing floor currently being managed with phenobarb taper in addition to symptomatic management of patient symptoms 2. Relative polycythemia ? Secondary to severe dehydration patient has been started on D5 half-normal saline with repeat CBC ordered for monitoring 3. Hypokalemia ? Corrected per protocol 4. Acute renal insufficiency ? Patient creatinine on 07/27/2021 was 1.09 creatinine as of 10/09/2021 1.33. Patient has been started on IV fluid with monitoring with BMPs ordered 5. Tobacco dependence (patient vapes) - Counseled on cessation, offered nicotine patch for tobacco cravings 6. DVT prophylaxis ? Low risk did encourage early ambulation Charges/Coding Visit Charges Inpatient E&M: 67307 Subs Hosp L3
[2021-10-09 08:44] LABS: Absolute Lymphocyte Count 1.36 X10^3/uL (0.83-4.51); Absolute Neutrophil Count 3.3 X10^3/uL (2.0-7.7); Basophil# 0.07 X10^3/uL; Basophil% 1.3 % (0-1); Eosinophil# 0.17 X10^3/uL; Eosinophils% 3.1 % (0-5); Hematocrit 46.4 % (40-54); Hemoglobin 16.4 g/dL (13.0-16.5); Lymphocyte # 1.36 X10^3/ul (0.83-4.51); Lymphocyte % 24.5 % (19-41); Mean Corp Hgb Conc 35.3 g/dL (32-36); Mean Corpuscular Hgb 31.1 pg (27.0-32.0); Mean Corpuscular Volume 87.9 fL (80-94); Mean Platelet Vol. 8.7 fl (6.2-12.0); Monocyte# 0.63 X10^3/uL; Monocyte% 11.3 % (0-10); NRBC Flagged by Analyzer 0 % (0-5); Neutrophil # 3.32 X10^3/uL (2.7-7.7); Neutrophil % 59.6 % (47-70); Platelet Count 220 K/mm3 (150-450); RBC Distribution Width CV 12.1 % (11.6-14.6); RBC Distribution Width SD 39.3 fl (35.1-43.9); Red Blood Count 5.28 M/mm3 (4.6-6.2); White Blood Count 5.6 K/mm3 (4.4-11.0)
[2021-10-09 09:08] LABS: AST(SGOT) 27 U/L (15-37); Alanine Aminotransfer ALT/SGPT 39 U/L (16-61); Albumin, Serum 3.6 g/dL (3.2-5.0); Alkaline Phosphatase 104 U/L (45-117); Anion Gap 5 (5-15); BUN 6 mg/dL (7-18); BUN/Creat Ratio 4.5 RATIO (10-20); Bilirubin, Direct 0.14 mg/dL (0.00-0.30); Calcium,Total 9.1 mg/dL (8.5-10.1); Chloride 101 mmol/L (98-107); Creatinine, Serum 1.33 mg/dL (0.70-1.30); EST Glomerular Filtration Rate 64 mL/min (>60); Est Glom Filt Rate - Afr Amer 78 mL/min (>60); Estimated Creatinine Clearance 73.57 ml/min; Globulin 3.9 g/dL (2.2-4.2); Glucose 101 mg/dL (74-106); Magnesium 2.2 mg/dL (1.6-2.6); Potassium 4.2 mmol/L (3.5-5.1); Protein, Total 7.5 g/dL (6.4-8.2); Sodium Level 136 mmol/L (136-145)
[2021-10-09 09:27] VITALS: BP 138/80; PULSE 86; RESP 18; TEMP 37; O2SAT 98
[2021-10-09] MEDS: Folic Acid 1 MG Tablet PO (09:35)
[2021-10-09] MEDS: Thiamine Hydrochloride 100 MG Tablet PO (09:35)
--- NOTE | 2021-10-09 13:08 | NURSING ---
Patient states he needs to leave. He states there is something important going on tomorrow that he cannot miss. AMA papers signed. Dr. Long notified.
--- NOTE | 2021-10-09 13:45 | PCM.DC.SUM ---
Providers Date of Admission: 10/08/21 Primary Care Physician: ROSARIO Wesley Reason For Visit: detox Diagnosis Discharge Diagnosis (1) Alcohol dependence: Status: Acute Code(s): F10.20 - Alcohol dependence, uncomplicated Qualifiers: Substance use status: uncomplicated Qualified Code(s): F10.20 - Alcohol dependence, uncomplicated Medications at Discharge Home Medications NK 07/26/21 Hospital Course Summary of Care Provided Minutes Spent on Discharge: 35 Hospital Course: 1. Acute alcohol withdrawal ? Patient has been admitted to regular nursing floor currently being managed with phenobarb taper in addition to symptomatic management of patient symptoms ?Patient left AMA this to be into his medical stabilization. Attempts made for patient to resend his decision proved futile 2. Relative polycythemia ? Secondary to severe dehydration patient has been started on D5 half-normal saline with repeat CBC ordered for monitoring 3. Hypokalemia ? Corrected per protocol 4. Acute renal insufficiency ? Patient creatinine on 07/27/2021 was 1.09 creatinine as of 10/09/2021 1.33. Patient has been started on IV fluid with monitoring with BMPs ordered 5. Tobacco dependence (patient vapes) - Counseled on cessation, offered nicotine patch for tobacco cravings 6. DVT prophylaxis ? Low risk did encourage early ambulat Physical Exam Narrative GENERAL: cooperative HEENT: Atraumatic; EYES; Anicteric, Normal Conjunctiva NECK; supple, normal thyroid, RESPIRATORY: Diminished to auscultation CARDIOVASCULAR: Regular S1 S2, GI: soft, normoactive bowel sounds, : No Renal angle tenderness; EXTREMITIES: No edema, no clubbing, MUSCULOSKELETAL: no muscle wasting NEURO: Awake; no lateralizing signs. SKIN: No Rash PSYCH; Flat affect Weight / BMI Weight Weight: 73.4 kg Body Mass Index (BMI) 24.5 ABG / Lab / Microbiology Data Result Diagrams: 10/09/21 08:33 10/09/21 08:33 Laboratory: Laboratory Results - last 24 hr 10/08/21 21:10: WBC 8.7, RBC 5.83, Hgb 18.0 H*, Hct 50.3, MCV 86.3, MCH 30.9, MCHC 35.8, RDW Std Deviation 37.9, RDW Coeff of Junior 12.0, Plt Count 260, MPV 8.8, Immature Gran % (Auto) 0.200, Neut % (Auto) 62.5, Lymph % (Auto) 24.8, [place] % (Auto) 10.3 H, Eos % (Auto) 1.0, Baso % (Auto) 1.2 H, Absolute Neuts (auto) 5.4, Absolute Lymphs (auto) 2.15, Nucleated RBC % 0 10/08/21 21:10: Sodium 138, Potassium 3.3 L, Chloride 97 L, Carbon Dioxide 33.0 H, Anion Gap 8, BUN 6 L, Creatinine 1.29, Estim Creat Clear Calc 75.85, Est GFR (MDRD) Af Amer 80, Est GFR (MDRD) Non-Af 66, BUN/Creatinine Ratio 4.7 L, Glucose 115 H, Calcium 9.5, Magnesium 2.3, Total Bilirubin 0.60, AST 27, ALT 46, Alkaline Phosphatase 116, Total Protein 8.8 H, Albumin 4.4, Globulin 4.4 H, Albumin/Globulin Ratio 1.0 10/08/21 21:10: Ethyl Alcohol 255.0 10/08/21 21:10: Urine Opiates Screen NEGATIVE, Urine Methadone Screen NEGATIVE, Ur Barbiturates Screen NEGATIVE, Ur Phencyclidine Scrn NEGATIVE, Ur Amphetamines Screen NEGATIVE, MDMA (Ecstasy) Screen NEGATIVE, U Benzodiazepines Scrn NEGATIVE, Urine Cocaine Screen NEGATIVE, U Cannabinoids Screen NEGATIVE, Ur Drug Screen Comment 10/08/21 21:10: Phosphorus 3.3 10/09/21 08:33: WBC 5.6, RBC 5.28, Hgb 16.4, Hct 46.4, MCV 87.9, MCH 31.1, MCHC 35.3, RDW Std Deviation 39.3, RDW Coeff of Junior 12.1, Plt Count 220, MPV 8.7, Immature Gran % (Auto) 0.200, Neut % (Auto) 59.6, Lymph % (Auto) 24.5, [place] % (Auto) 11.3 H, Eos % (Auto) 3.1, Baso % (Auto) 1.3 H, Absolute Neuts (auto) 3.3, Absolute Lymphs (auto) 1.36, Nucleated RBC % 0 10/09/21 08:33: Sodium 136, Potassium 4.2, Chloride 101, Carbon Dioxide 30.0, Anion Gap 5, BUN 6 L, Creatinine 1.33 H, Estim Creat Clear Calc 73.57, Est GFR (MDRD) Af Amer 78, Est GFR (MDRD) Non-Af 64, BUN/Creatinine Ratio 4.5 L, Glucose 101, Calcium 9.1, Magnesium 2.2, Total Bilirubin 0.60, Direct Bilirubin 0.14, AST 27, ALT 39, Alkaline Phosphatase 104, Total Protein 7.5, Albumin 3.6, Globulin 3.9 D/C Instructions Discharge Diet: No restrictions Discharge Activity: Return to Normal Activity Call your doctor if you observe: Fever of 101 or Higher, Shortness of breath, Fainting spells and Chest pain Meaningful Use Info Meaningful Use Diagnoses (Choose all that apply): None applicable Discharge Plan Admission Admit Date/Time: 10/08/21 21:09 Attending Provider: Vinicio Long Primary Care Provider: Mekhi Greene NP Consulting Providers: Tracie Jones Discharge Orders/Prescriptions Prescriptions: No Action NK RF: 0 Referrals / Follow Up: Mekhi Greene NP, [employer] [Primary Care Provider] - Disposition Disposition (needs filled in before D/C Order can be placed): Against Medical Advice Charges/Coding Visit Charges Inpatient E&M: 08049 Disch Hosp
== END 2021-10-09 13:15 | disposition left against medical advice (07) | DRG 894 ==
LOC: ED 21:13 → MS3 21:24
PROVIDERS: Admitting Provider Family Medicine; Emergency Provider Emergency Medicine; PCP Nurse Practitioner Primary Care; Visit Provider Internal Medicine
DX: F10.239 Alcohol dependence with withdrawal, unspecified (principal); D75.1 Secondary polycythemia; E87.6 Hypokalemia; F17.290 Nicotine dependence, other tobacco product, uncomplicated; E86.0 Dehydration; Z53.29 Procedure and treatment not carried out because of patient's decision for other reasons; N28.9 Disorder of kidney and ureter, unspecified; Y90.9 Presence of alcohol in blood, level not specified
CPT/HCPCS: 36415; 80048; 80053; 80076; 80307; 82077; 83735; 84100; 85025; 93005; 99283; 99406; J7120; A4216